=== PATIENT | female | born 1985 | race Caucasian/White ===

== ENCOUNTER 2017-04-16 12:45 | Emergency (ER) | payer SELFPAY ==
[~2017-04-16] VITALS: Ht 157.5 cm; Wt 55.1 kg
[2017-04-16 12:48] VITALS: BP 133/76
[2017-04-16 14:11] LABS: BLOOD UREA NITROGEN 13 mg/dL (7-18)
[2017-04-16] MEDS ORDERED: CEFTRIAXONE 1,000 MG IM ONE (14:30)
[2017-04-16] MEDS ORDERED: CEFTRIAXONE 1,000 MG ONE (14:38)
== END 2017-04-16 14:49 | disposition home or self-care (01) ==
LOC: ED 14:00
DX: N30.00 Acute cystitis without hematuria (principal); A06.0 Acute amebic dysentery; F12.10 Cannabis abuse, uncomplicated
CPT/HCPCS: 36415; 80048; 81001; 82040; 85025; 87086; 96372; 99284; J0696